=== PATIENT | male | born 1955 | race Caucasian/White ===

== ENCOUNTER → 2017-06-13 07:34 | Day surgery (SDC) | payer BC ==
[~2017-06-13 07:34] MED LIST: Acetaminophen TAB* 325 MG ONE; Acetaminophen TAB* 325 MG PO ONE; Buffered Lidocaine 0.9% SYRIN* 5 ML/SYR SYRINGE INTRADERM ONE; Buffered Lidocaine 0.9% SYRIN* 5 ML/SYR SYRINGE ONE; Bupivacaine 0.5% SDV PF* 30 ML VIAL ONE; DiMENhydriNATE IV* 50 MG/ML VIAL ONE; HYDROmorphone INJ* 1 MG/ML CARPUJECT SYRINGE IV PRN; Ibuprofen TAB* 600 MG PO PRN; KETAMINE HCL* 50 MG/ML 10 ML VIAL ONE; Ketorolac INJ* 30 MG/ML 1 ML VIAL ONE; Lidocaine 1% MPF wEPI 200,000* 30 ML SDV ONE; Lidocaine 2% PF * 5 ML VIAL ONE; Metoclopramide IV* 5 MG/ML 2 ML VIAL IV SLOW PU ONE; Metoclopramide IV* 5 MG/ML 2 ML VIAL ONE; Midazolam* 1 MG/ML 2 ML VIAL (2 MG) ONE; Ondansetron INJ* 2 MG/ML VIAL IV PRN; Ondansetron INJ* 2 MG/ML VIAL ONE; PROCHLORPERAZINE INJ 5 MG/ML 2 ML VIAL IV PRN; PROCHLORPERAZINE INJ 5 MG/ML 2 ML VIAL ONE; Propofol* 500 MG/50 ML BTL ONE; Sodium Citrate/Citric Acid* 15 ML UDC ONE; Sodium Citrate/Citric Acid* 15 ML UDC PO ONE; ceFAZolin 2 GM PREMIX (*) 2 GM/50 ML BAG IVPB ONE; fentaNYL* 50 MCG/ML 2 ML VIAL (100 MCG VIAL) IV PRN; fentaNYL* 50 MCG/ML 2 ML VIAL (100 MCG VIAL) ONE; oxyCODONE TAB* 5 MG TAB PO PRN; oxyCODONE/Acetamin 5/325 MG* TAB ONE; oxyCODONE/Acetamin 5/325 MG* TAB PO PRN
[2017-06-13 13:28] VITALS: BP 138/85
--- NOTE | 2017-06-14 06:23 | OP ---
DATE OF OPERATION: 06/13/17 [facility] DATE OF : 57 SURGEON: Naveen Guerrero MD RESERVATIONIST: JANNETTE Muir ANESTHESIOLOGIST: Lauren Pena MD ANESTHESIA: Local with monitored anesthesia care. PRE-OP DIAGNOSIS: Right inguinal hernia. POST-OP DIAGNOSIS: Right direct inguinal hernia. OPERATIVE PROCEDURE: Open repair of direct inguinal hernia with a ProGrip Covidien polyester mesh. INDICATIONS: Mr. Wes Carlson is a 62-year-old gentleman who has undergone a left inguinal hernia repair in the past, is noted to have a right inguinal hernia and is now to undergo an elective repair. WOUND CLASSIFICATION: I. SPECIMEN: One. DRAINS: None. COMPLICATIONS: None. DESCRIPTION OF PROCEDURE: Written informed consent was obtained, the right groin was marked with indelible ink and preoperative antibiotics were administered. The patient was taken to the operating room, placed in the supine position. The right groin and lower abdomen were prepped and draped in the usual sterile fashion. Time-out verification was completed. Initially, a mixture of 1% lidocaine with 0.5% Marcaine was infiltrated extensively in the right groin and an oblique incision was made several fingerbreadths above the right inguinal crease and carried down through Amber' s fascia. The external oblique aponeurosis was identified and opened in the direction of its fibers to expose the underlying spermatic cord. The spermatic cord and its contents were encircled with one quarter-inch Edis drain at the pubic tubercle without difficulty. It appeared to be apparent that there was a direct space hernia protruding through a fairly sizeable defect in the transversalis fascia. This was from the cord structures up to the internal ring. Also, noted there was a rather large cord lipoma, which was from the cord structures up into the internal ring and this was divided and removed, but not sent for pathology. Careful evaluation of the cord structures revealed no evidence of an indirect inguinal hernia sac. The direct space hernia was identified and this was imbricated with several 3-0 Polysorb suture in preparation for mesh placement. Next, the ProGrip precut Covidien mesh was then inserted and sutured to the pubic tubercle with a 0 Polysorb suture. The mesh was then used to cover both the direct and indirect spaces and was sutured into place with several 0 Vicryl sutures at the conjoint tendon superiorly, the musculature laterally, and the inguinal ligament inferiorly. This reinforced the inguinal floor well and reconstructed the inguinal ring as well. The mesh sat nicely under no tension and without folding or wrinkling. Hemostasis was assured. Additional Marcaine was infiltrated. The external oblique aponeurosis was closed with a running 3-0 Polysorb suture. Amber's fascia was closed with a running 3-0 Polysorb suture. The skin was approximated with subcuticular 4-0 Vicryl suture. Steri-Strips and sterile dressings were applied. The patient tolerated the procedure well, was taken to the recovery room in stable condition. [id number] #: [id number] SID
== END | disposition home or self-care (01) ==
LOC: OR 07:34
PROVIDERS: ATTEND Surgery
DX: K40.90 Unilateral inguinal hernia, without obstruction or gangrene, not specified as recurrent (principal); Z87.891 Personal history of nicotine dependence; Z88.5 Allergy status to narcotic agent
CPT/HCPCS: A9270-GY; C1781; J0690; J0780; J1240; J1885; J2001; J2250; J2405; J2704; J2765; J3010